=== PATIENT | male | born 1975 | race Caucasian/White ===

== ENCOUNTER 2017-03-04 10:22 | Emergency (ER) | payer OTHER ==
[~2017-03-04 10:22] MED LIST: CLARITIN10 M2 PO; COLACE PO; INDOMETHACIN25 MG PO; NO MEDICATIONS; ROBITUSSIN100 MG/51 PO; TYLENOL #3 PO; VICODIN 5/500 T1 TAB PO; VOLTAREN PO
== END 2017-03-04 11:36 | disposition home or self-care (01) ==
LOC: SED 10:22
DX: M13.841 Other specified arthritis, right hand (principal); M79.89 Other specified soft tissue disorders
CPT/HCPCS: 99283